=== PATIENT | male | born 1995 | race Caucasian/White ===

== ENCOUNTER 2018-01-27 12:33 | Emergency (ER) | payer OTHER ==
[~2018-01-27] VITALS: Ht 167.6 cm; Wt 59.0 kg
[2018-01-27 12:37] VITALS: BP 134/73
--- NOTE | 2018-01-27 12:44 | NUR ---
PT AMBULATES TO BED 5
--- NOTE | 2018-01-27 12:50 | NUR ---
BIB PARENTS C/O N/V & LUQ ABDOMINAL PAIN X 1WEEK. CAME HERE YESTERDAY WITH S/S. . DENIES N/V/D; SKIN IS PINK/WARM/DRY; AWAKE, ALERT. LUNGS CLEAR BL; HR EVEN AND REGULAR; PT DENIES ANY FEVER, CP, SOB, OR COUGH AT THIS TIME; PATIENT STATES PAIN OF 9/10 AT THIS TIME; VSS; PATIENT POSITIONED FOR COMFORT; HOB ELEVATED; BEDRAILS UP X2; BED DOWN. ER MD MADE AWARE OF PT STATUS.
[2018-01-27] MEDS ORDERED: KETOROLAC 30 MG/ML VIAL IVP ONE (12:55)
[2018-01-27] MEDS ORDERED: PROMETHAZINE 25 MG/ML VIAL IM ONE (12:55)
[2018-01-27] MEDS ORDERED: diphenhydrAMINE 50 MG/ML VIAL IVP ONE (12:55)
[2018-01-27] MEDS ORDERED: NACL 0.9% 1,000 ML IV SCH ×2 (12:55)
[2018-01-27] MEDS ORDERED: METOCLOPRAMIDE 10 MG/2 ML INJ VIAL IVP ONE (12:55)
[2018-01-27] MEDS ORDERED: HALOPERIDOL IM 5 MG/ML VIAL IM ONE (13:00)
--- NOTE | 2018-01-27 13:52 | NUR ---
PT STATED PAIN RELIVED. FAMILY AT BEDSIDE.
[2018-01-27 14:02] LABS: BASOPHILS # (AUTO) 0.1 K/uL (0.00-0.22); BASOPHILS % (AUTO) 0.8 % (0.0-2.0); EOSINOPHILS % (AUTO) 0.2 % (0.0-4.0); HEMATOCRIT 44.4 % (36-52); HEMOGLOBIN 15.1 g/dL (12.0-18.0); LYMPHOCYTES # (AUTO) 2.6 K/uL (2.0-11.5); LYMPHOCYTES % (AUTO) 23.7 % (20.5-51.1); MEAN CORPUSCULAR HEMOGLOBIN 32 pg (27-31); MEAN CORPUSCULAR HGB CONC 34 g/dL (33-37); MEAN CORPUSCULAR VOLUME 93.4 fL (80-94); MONOCYTES # (AUTO) 0.7 K/uL (0.8-1.0); MONOCYTES % (AUTO) 6.5 % (1.7-9.3); NEUTROPHILS # (AUTO) 7.5 K/uL (1.8-7.7); NEUTROPHILS % (AUTO) 68.8 % (42.2-75.2); PLATELET COUNT (AUTO) 205 K/uL (140-450); RED BLOOD CELL COUNT(AUTO) 4.76 MIL/uL (4.20-6.10); RED CELL DISTRIBUTION WIDTH 12.6 % (11.6-13.7)
[2018-01-27 14:04] LABS: APPEARANCE,URINE CLEAR (CLEAR); BILIRUBIN,URINE NEGATIVE (NEGATIVE); BLOOD, URINE NEGATIVE (NEGATIVE); COLOR,URINE YELLOW (YELLOW); LEUKOCYTE ESTERASE ,URINE NEGATIVE (NEGATIVE); NITRITE, URINE NEGATIVE (NEGATIVE); PH,URINE 8.5 (5.0-9.0); UGLUCOSE NEGATIVE (NEGATIVE)
[2018-01-27 14:05] LABS: RBC,URINE 0-5 (RARE) /HPF (0-5); WBC,URINE 0-5 (RARE) /HPF (0-5)
[2018-01-27 14:13] LABS: BARBITURATE, URINE NEG. ng/ml (NEG <=200); BENZODIAZEPINE, URINE NEG. ng/mL (NEG <=200); CANNABINOID, URINE POS. ng/mL (NEG <=50); COCAINE, URINE NEG. ng/mL (NEG <=300); OPIATE, URINE NEG. ng/mL (NEG <=2000); PHENCYCLIDINE SCREEN,URINE NEG. ng/mL (NEG <=25)
[2018-01-27 14:24] LABS: ANION GAP 21.1 (8-16); CARBON DIOXIDE 20.2 mmol/L (21-32); CHLORIDE 101 mmol/L (98-107); CREATININE 1.4 mg/dL (0.7-1.3); GFR ARICAN-AMERICAN 82 mL/min (>90); GLUCOSE 93 mg/dL (74-106); POTASSIUM 3.3 mmol/L (3.5-5.1); SODIUM SERUM 139 mmol/L (136-145); UREA NITROGEN, BLOOD 26 mg/dL (7-18)
[2018-01-27 14:31] LABS: ALBUMIN 4.8 g/dL (3.4-5.0); AMYLASE 77 U/L (25-115); ASPARTATE AMINOTRANSFERASE 25 U/L (15-37); LIPASE 78 U/L (73-393); TOTAL BILIRUBIN 1.5 mg/dL (0.0-1.0)
[2018-01-27 14:35] LABS: ACETAMINOPHEN < 0.5 ug/ml (10-30); SALICYLATE < 2.8 mg/dL (2.8-20.0)
--- NOTE | 2018-01-27 15:55 | NUR ---
PT AWAKE, ALERT AND ORIENTED. ON ROOM AIR, NO S/S OF RESPIRATORY DISTRESS NOTED. NO C/O PAIN OR DISCOMFORT. REFUSED TO BE ADMITTED. MD EXPLAINED RISKS AND BENEFITS. PT VERBALIZED UNDERSTANDING. PT STILL WANTED TO GO HOME. PT SIGNED AMA.
[2018-01-27 16:19] VITALS: BP 112/62
--- NOTE | 2018-01-27 16:23 | NUR ---
PT SIGNED AMA, Patient AWAKE,alert, oriented and verbalized understanding of instructions. Ambulatory with steady gait. All questions addressed prior to discharge. ID band removed. Patient advised to follow up with PMD. Rx of DIPHENHYDRAMINE AND HALOPERIDOL given. Patient educated on indication of medication including possible reaction and side effects. Opportunity to ask questions provided and answered.
== END 2018-01-27 16:23 | disposition home or self-care (01) ==
LOC: MED 12:33
DX: E86.0 Dehydration (principal); K31.89 Other diseases of stomach and duodenum
CPT/HCPCS: 36415; 74176; 80053; 80305; 81001; 82150; 82550; 82553; 83690; 85025; 96361; 96372; 96374; 96375; 99285; G0480; G0482; J1200; J1630; J1885; J2550; J2765; J7030